=== PATIENT | female | born 1940 | race Hispanic/Latino ===

== ENCOUNTER → 2019-04-13 | Outpatient (CLI) | payer OTHER, MEDICARE ==
[~2019-04-13] MED LIST: ACET-2521 PO; ATOR20TA65 PO; AZIT500T4 PO; BENZ200C53 PO; CALC600T12 PO; FAMO20TA8 PO; FERR-82 PO; FLUO20CA30 PO; INSU100V33 SQ; LEVO100T12 PO; LEVO5TAB13 PO; LISI-617 PO; MECL-111 PO; METF-446 PO; OXYB10TA2 PO; PRED20TA3 PO; SENN1TAB11 PO
== END | disposition home or self-care (01) ==
LOC: RAH 08:57
PROVIDERS: ATTEND Internal Medicine Gastroenterology
DX: K44.9 Diaphragmatic hernia without obstruction or gangrene (principal); K22.2 Esophageal obstruction; E11.9 Type 2 diabetes mellitus without complications; I10 Essential (primary) hypertension
CPT/HCPCS: 74240

== ENCOUNTER 2019-04-24 05:30 | Day surgery (SDC) | payer OTHER, MEDICARE ==
[~2019-04-24] VITALS: Ht 162.6 cm; Wt 83.0 kg
[~2019-04-24 05:30] MED LIST changes: +ACET-2743 PO; +ASPI-555 PO; -AZIT500T4 PO; -BENZ200C53 PO; +CHOL50004 PO; +DOCU100C33 PO; -FAMO20TA8 PO; -FERR-82 PO; +HUMLIS7525 SQ; -INSU100V33 SQ; +IRON PO; +NITR0.4T50 SL; -PRED20TA3 PO; -SENN1TAB11 PO
[2019-04-24] MEDS ORDERED: SODIUM CHLORIDE 0.9% 1000ML 1,000 ML IV ONE (05:48)
[2019-04-24 06:13] VITALS: BP 137/76
[2019-04-24] MEDS ORDERED: UMEC1DIS IH (06:28)
[2019-04-24] MEDS ORDERED: PROPOFOL 10 MG/ML 20ML VIAL IV ONE (06:54)
[2019-04-24 07:25] VITALS: BP 136/62
[2019-04-24 07:36] VITALS: BP 127/62
[2019-04-24 07:45] VITALS: BP 151/81
== END 2019-04-24 07:51 | disposition home or self-care (01) ==
LOC: ENDO 05:30 → DAH 05:30 → ENDO 07:51
PROVIDERS: ATTEND Internal Medicine
DX: K59.04 Chronic idiopathic constipation (principal); D12.3 Benign neoplasm of transverse colon; K57.30 Diverticulosis of large intestine without perforation or abscess without bleeding; K64.0 First degree hemorrhoids; E11.9 Type 2 diabetes mellitus without complications; K21.9 Gastro-esophageal reflux disease without esophagitis; E78.5 Hyperlipidemia, unspecified; I10 Essential (primary) hypertension; E03.9 Hypothyroidism, unspecified; M19.90 Unspecified osteoarthritis, unspecified site; I25.118 Atherosclerotic heart disease of native coronary artery with other forms of angina pectoris; G47.30 Sleep apnea, unspecified; Z90.710 Acquired absence of both cervix and uterus; Z98.890 Other specified postprocedural states; Z79.4 Long term (current) use of insulin; Z79.84 Long term (current) use of oral hypoglycemic drugs; Z79.899 Other long term (current) drug therapy
CPT/HCPCS: 45385; 82948 ×2; 88305; A4215; A4221; A4222; A4223; A4606; A4615; A4663; J2704; J7030

== ENCOUNTER → 2019-05-04 | Outpatient (CLI) | payer OTHER, MEDICARE ==
[~2019-05-04] MED LIST changes: +UMEC1DIS IH
== END | disposition home or self-care (01) ==
LOC: RAH 05-02 08:45
PROVIDERS: ATTEND Internal Medicine Gastroenterology
DX: K76.0 Fatty (change of) liver, not elsewhere classified (principal); K83.8 Other specified diseases of biliary tract
CPT/HCPCS: 76700

== ENCOUNTER 2019-05-07 06:45 | Day surgery (SDC) | payer OTHER, MEDICARE ==
[~2019-05-07] VITALS: Ht 152.4 cm; Wt 84.4 kg
[~2019-05-07 06:45] MED LIST changes: +SODIUM CHLORIDE 0.9% 1000ML 1,000 ML IV ONE
[2019-05-07 08:50] VITALS: BP 164/71
[2019-05-07] MEDS ORDERED: PROPOFOL 10 MG/ML 20ML VIAL IV ONE (09:56)
[2019-05-07 10:06] VITALS: BP 136/93
[2019-05-07 10:11] VITALS: BP 148/65
[2019-05-07 10:16] VITALS: BP 161/77
[2019-05-07 10:21] VITALS: BP 168/84
[2019-05-07 10:26] VITALS: BP 164/78
== END 2019-05-07 10:45 | disposition home or self-care (01) ==
LOC: ENDO 06:45 → DAH 06:45 → ENDO 10:45
PROVIDERS: ATTEND Internal Medicine
DX: R10.9 Unspecified abdominal pain (principal); K29.50 Unspecified chronic gastritis without bleeding; K29.80 Duodenitis without bleeding; K26.9 Duodenal ulcer, unspecified as acute or chronic, without hemorrhage or perforation; K31.89 Other diseases of stomach and duodenum; K44.9 Diaphragmatic hernia without obstruction or gangrene; K59.04 Chronic idiopathic constipation; K64.0 First degree hemorrhoids; K57.30 Diverticulosis of large intestine without perforation or abscess without bleeding; E78.2 Mixed hyperlipidemia; E11.9 Type 2 diabetes mellitus without complications; K21.9 Gastro-esophageal reflux disease without esophagitis; I10 Essential (primary) hypertension; E03.9 Hypothyroidism, unspecified; I25.119 Atherosclerotic heart disease of native coronary artery with unspecified angina pectoris; M19.90 Unspecified osteoarthritis, unspecified site; G47.30 Sleep apnea, unspecified; Z99.89 Dependence on other enabling machines and devices; Z98.890 Other specified postprocedural states; Z90.710 Acquired absence of both cervix and uterus; Z79.82 Long term (current) use of aspirin; Z79.84 Long term (current) use of oral hypoglycemic drugs; Z79.899 Other long term (current) drug therapy
CPT/HCPCS: 43239; 82948 ×2; 88305; 93005; A4215; A4221; A4222; A4223; A4606; A4620; A4663; J2704; J7030

== ENCOUNTER → 2022-02-04 | Outpatient (CLI) | payer MEDICARE ==
[~2022-02-04] MED LIST changes: -ASPI-555 PO; +ASPI-556 PO; +CALC-1125 PO; -CALC600T12 PO; -LISI-617 PO; +LISI5TAB21 PO; -MECL-111 PO; +MECL-160 PO; -OXYB10TA2 PO; +OXYB10TA30 PO; -SODIUM CHLORIDE 0.9% 1000ML 1,000 ML IV ONE
== END | disposition home or self-care (01) ==
LOC: RAH 10:32
PROVIDERS: ATTEND Family Medicine
DX: H05.20 Unspecified exophthalmos (principal); M06.9 Rheumatoid arthritis, unspecified; R51.9 Headache, unspecified
CPT/HCPCS: 70540

== ENCOUNTER → 2022-06-24 | Outpatient (CLI) | payer OTHER, MEDICARE ==
[2022-06-24 17:11] LABS: % IRON SATURATION 10.5 % (22-44)
== END | disposition home or self-care (01) ==
LOC: LAB 11:42
PROVIDERS: ATTEND Internal Medicine Cardiovascular Disease
DX: D50.0 Iron deficiency anemia secondary to blood loss (chronic) (principal)
CPT/HCPCS: 82270; 82728; 83540; 83550

== ENCOUNTER 2023-03-13 13:57 | Emergency (ER) | payer OTHER, MEDICARE ==
[~2023-03-13] VITALS: Ht 152.4 cm; Wt 74.8 kg
[~2023-03-13 13:57] MED LIST changes: -MECL-160 PO; +MECL-302 PO
[2023-03-13 14:52] LABS: CREATINE KINASE, TOTAL 63 U/L (21-232); MYOGLOBIN 24 ng/mL (10-92)
[2023-03-13 15:14] LABS: ALBUMIN 3.8 g/dL (3.5-5.0); BILIRUBIN,TOTAL 0.4 mg/dL (0.2-1.0); CREATININE 0.7 mg/dL (0.5-1.5); POTASSIUM 3.8 mmol/L (3.5-5.1); TOTAL PROTEIN, SERUM 7.9 g/dL (6.0-8.3)
[2023-03-13] MEDS ORDERED: HYDROCODONE/ACETAMINOPHEN 5/325 MG TAB PO ONE (16:30)
[2023-03-13 19:42] VITALS: BP 152/87; PULSE 83; RESP 18; O2SAT 100
== END 2023-03-13 19:54 | disposition home or self-care (01) ==
LOC: EDH 13:57
DX: S22.42XA Multiple fractures of ribs, left side, initial encounter for closed fracture (principal); I10 Essential (primary) hypertension; E11.9 Type 2 diabetes mellitus without complications; E78.00 Pure hypercholesterolemia, unspecified; Z79.82 Long term (current) use of aspirin; Z79.899 Other long term (current) drug therapy; Z79.84 Long term (current) use of oral hypoglycemic drugs; Z98.890 Other specified postprocedural states; W18.39XA Other fall on same level, initial encounter; Y93.01 Activity, walking, marching and hiking; Y92.89 Other specified places as the place of occurrence of the external cause; Y99.8 Other external cause status
CPT/HCPCS: 36415; 71045; 71100; 72125; 73030; 73060; 80053; 82550; 83874; 84484

== ENCOUNTER → 2024-03-05 | Outpatient (CLI) | payer OTHER, MEDICARE ==
[2024-03-05 12:20] LABS: BASOPHILS % (AUTO) 1.1 % (0.0-5.0); EOSINOPHILS # (AUTO) 0.41 K/uL (0.00-0.70); EOSINOPHILS % (AUTO) 4.4 % (0.0-8.0); HEMATOCRIT 32.4 % (36-48); IMMATURE GRANULOCYTE ABSOLUTE 0.07 K/uL (0-1); LYMPHOCYTES # (AUTO) 2.9 K/uL (1.0-4.8); LYMPHOCYTES % (AUTO) 30.9 % (21.0-51.0); MEAN CORPUSCULAR HEMOGLOBIN 23.7 pg (27.0-33.0); MEAN CORPUSCULAR VOLUME 81.8 fL (79-99); MONOCYTES # (AUTO) 0.8 K/uL (0.1-1.0); MONOCYTES % (AUTO) 8.4 % (3.0-13.0); NEUTROPHILS # (AUTO) 5.1 K/uL (1.8-7.7); NEUTROPHILS % (AUTO) 54.5 % (40.0-77.0); PLATELET COUNT (AUTO) 393 K/uL (130-400); RED BLOOD CELL COUNT(AUTO) 3.96 MIL/uL (4.00-5.50); WHITE BLOOD COUNT (AUTO) 9.4 K/uL (4.8-10.8)
[2024-03-05 12:29] LABS: APPEARANCE,URINE CLEAR (CLEAR); BILIRUBIN,URINE NEGATIVE (NEGATIVE); COLOR,URINE LIGHT-YELLOW (YELLOW); GLUCOSE, URINE (UA) NEGATIVE (NEGATIVE); KETONES,URINE NEGATIVE (NEGATIVE); LEUKOCYTE ESTERASE ,URINE 250 Leu/uL (NEGATIVE); NITRATE,URINE NEGATIVE (NEGATIVE); PH,URINE 6.5 (5.0-8.0); PROTEIN,URINE NEGATIVE (NEGATIVE); UROBILINOGEN,URINE 0.2 mg/dL (0.2-1.0)
[2024-03-05 12:41] LABS: SQUAMOUS EPITHELIAL CELL,UR FEW /HPF (0-2)
== END | disposition home or self-care (01) ==
LOC: LAB 08:35
PROVIDERS: ATTEND Internal Medicine Cardiovascular Disease
DX: N39.0 Urinary tract infection, site not specified (principal); D64.9 Anemia, unspecified
CPT/HCPCS: 36415; 81001; 85025; 87086